=== PATIENT | male | born 1950 | race Hispanic/Latino ===

== ENCOUNTER 2021-05-25 14:07 | Emergency (ER) | payer OTHER ==
[2021-05-25] MEDS ORDERED: Tetracaine 0.5% PF 4 ML BOT ONE (14:34)
[2021-05-25] MEDS ORDERED: Boostrix 0.5 ML (Tdap) VIAL ONE (15:20)
== END 2021-05-25 15:27 | disposition home or self-care (01) ==
LOC: MADERS 14:07
DX: S05.02XA Injury of conjunctiva and corneal abrasion without foreign body, left eye, initial encounter (principal); E78.00 Pure hypercholesterolemia, unspecified; I10 Essential (primary) hypertension; E11.9 Type 2 diabetes mellitus without complications; E78.5 Hyperlipidemia, unspecified; W22.8XXA Striking against or struck by other objects, initial encounter
CPT/HCPCS: 90471; 90715